=== PATIENT | female | born 1940 | race Caucasian/White ===

== ENCOUNTER 2018-07-19 12:23 | Observation (INO) | payer OTHER ==
[2018-07-19] MEDS ORDERED: IPRATROPIUM/ALBUTEROL 3 ML DEYVIAL IH ONE (13:12)
[2018-07-19] MEDS ORDERED: NS 1,000 ML IV ONE (13:12)
--- NOTE | 2018-07-19 13:32 | EDPHY ---
H & P Stated Complaint: fatigue Time Seen by Provider: 07/19/18 13:01 HPI/ROS: CHIEF COMPLAINT: General fatigue, shortness of breath, recent bronchitis HISTORY OF PRESENT ILLNESS: 80-year-old female who lives in [place] presents the emergency department reporting that she arrived to the [place] area on July 08. Several days later she went to see her brother in [place]. She developed what she thought was bronchitis with deep cough, shortness of breath, and wheezing. Low-grade fever. Those symptoms continued for about a week. Patient 's cough has improved however she continues to report significant dyspnea on exertion, and generalized fatigue. Vomiting occasionally after significant coughing, no diarrhea, no chest pain. Patient reports feeling very dehydrated with a dry mouth. No palpitations. No urinary complaints. No headache. She is lightheaded and dizzy. REVIEW OF SYSTEMS: A comprehensive 10 system review of systems was reviewed and is otherwise negative aside from elements mentioned in the history of present illness and medical decision making. PAST MEDICAL HISTORY: Atrial fibrillation, on Xarelto. Hypertension. SOCIAL HISTORY: Lives in [place]. 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 Nonsmoker. VITAL SIGNS Reviewed by me. GENERAL: Well-developed, well-nourished, resting comfortably in no respiratory distress. HEENT: Atraumatic. Eyes: No icterus, no injection. Mouth: moist mucous membranes. No erythema or lesions. Neck: supple with no adenopathy. LUNGS: Diminished breath sounds throughout, no wheezes rhonchi or rales auscultated. CARDIAC: Regular rate and rhythm, no rubs, murmurs or gallops. ABDOMEN: Soft, nontender, nondistended, bowel sounds normal. BACK: No CVA tenderness. EXTREMITIES: No trauma. No edema. Range of motion is normal throughout. NEURO: Alert and oriented, grossly nonfocal. SKIN: Warm and dry, no rash. PSYCHIATRIC: Normal mentation, no agitation. Are of - Personal History Current Tetanus Diphtheria and Acellular Pertussis (TDAP): Unsure - Medical/Surgical History Hx Asthma: No Hx Chronic Respiratory Disease: No Hx Diabetes: No Hx Cardiac Disease: No Hx Renal Disease: No Hx Cirrhosis: No Hx Alcoholism: No Hx HIV/AIDS: No Hx Splenectomy or Spleen Trauma: No Other PMH: afib, - Social History Smoking Status: Never smoked Constitutional: Initial Vital Signs Temperature (C) 36.6 C 07/19/18 12:26 Heart Rate 71 07/19/18 12:26 Respiratory Rate 16 07/19/18 12:26 Blood Pressure 132/75 H 07/19/18 12:26 O2 Sat (%) 94 07/19/18 12:26 O2 Delivery Mode Room Air Allergies/Adverse Reactions: Sulfa (Sulfonamide Antibiotics) Allergy (Verified 07/19/18 12:32) Home Medications: Medication Instructions Recorded Flecainide Acetate 50 mg PO BID 07/19/18 Metoprolol Tartrate [Lopressor 25 25 mg PO BID 07/19/18 mg (*)] Rivaroxaban [Xarelto] 20 mg PO DAILY 07/19/18 Medical Decision Making - Diagnostics EKG Interpretation: 12-LEAD EKG: Please see the full report in [facility]. My interpretation: Normal sinus rhythm, old inferior infarct. Imaging: I viewed and interpreted images myself ED Course/Re-evaluation: A 77-year-old female presenting with some shortness of breath which is been present for about 2 weeks. Patient thought she may have had bronchitis during the 1st week of her illness, her cough has improved and she continues to have significant shortness of breath with exertion. EKG demonstrates no acute ischemic changes. Bedside troponin is 0.04. Chest x-ray: No infiltrate, bibasilar atelectasis only. Consistent with airways disease. Patient received a albuterol neb treatment and Solu-Medrol 125 mg. Patient's lab troponin is indeterminate at 0.40. Course was discussed with the patient as well as with the hospitalist service. Patient states that she had a treadmill in April of this year which was unable to complete secondary inability to raise her heart rate to the level needed. A nuclear stress test was supposed to be ordered but she has not completed it. Patient understands that her shortness of breath may be cardiac in etiology. She will be admitted to the hospital to rule out acute coronary syndrome. Aspirin 324 mg was given. Differential Diagnosis: Differential diagnosis for the patient's shortness of breath was considered including but not limited to pulmonary infectious processes, Leavitt disease, asthma exacerbation, COPD exacerbation, pulmonary emboli, pulmonary edema, congestive heart failure, and cardiac causes. - Data Points Laboratory Results: Laboratory Results 07/19/18 13:30 07/19/18 13:30 Medications Given: Flecainide Acetate (Tambocor) 50 mg PO BID [facility] Stop: 01/15/19 16:59 Last Admin: 07/20/18 09:04 Dose: 50 mg Metoprolol Tartrate (Lopressor) 25 mg PO BID [facility] Stop: 01/15/19 20:59 Last Admin: 07/20/18 09:03 Dose: 25 mg Oseltamivir Phosphate (Tamiflu) 75 mg PO BIDMEAL [facility] Stop: 07/24/18 08:01 Last Admin: 07/20/18 09:04 Dose: Not Given Rivaroxaban (Xarelto) 20 mg PO DAILY [facility] Stop: 01/15/19 19:59 Last Admin: 07/19/18 20:36 Dose: 20 mg Discontinued Medications Albuterol/Ipratropium (Duoneb) 3 ml IH EDNOW ONE Stop: 07/19/18 13:13 Last Admin: 07/19/18 13:58 Dose: 3 ml Aspirin (Aspirin) 324 mg PO EDNOW ONE Stop: 07/19/18 15:10 Last Admin: 07/19/18 15:43 Dose: 324 mg Furosemide (Lasix Injection) 20 mg IVP ONCE ONE Stop: 07/19/18 17:02 Last Admin: 07/19/18 17:30 Dose: 20 mg Sodium Chloride (Ns) 1,000 mls @ 0 mls/hr IV ONCE ONE; Wide Open PRN Reason: Protocol Stop: 07/19/18 13:13 Last Admin: 07/19/18 13:40 Dose: 1,000 mls Methylprednisolone Sodium Succinate (Solu-Medrol) 125 mg IVP EDNOW ONE Stop: 07/19/18 14:09 Last Admin: 07/19/18 14:25 Dose: 125 mg Potassium Chloride (Klor-Con) 40 meq PO ONCE ONE Stop: 07/19/18 17:02 Last Admin: 07/19/18 17:30 Dose: 40 meq Potassium Chloride (Klor-Con) 10 meq PO ONCE ONE PRN Reason: Protocol Stop: 07/19/18 20:19 Last Admin: 07/19/18 20:36 Dose: 10 meq Point of Care Test Results: Chemistry 07/19/18 13:35 POC Troponin I 0.04 ng/mL ng/mL (0.00-0.08) Departure - Departure Disposition: [facility] Acute Clinical Impression: Indeterminate troponin, Rule out ACS Dyspnea Qualifiers: Dyspnea type: dyspnea on exertion Qualified Code(s): R06.09 - Other forms of dyspnea Condition: Fair
[2018-07-19 13:42] LABS: PLATELET COUNT 212 10^3/uL (150-400)
[2018-07-19] MEDS ORDERED: methylPREDNISolone SOD SUCC 125 MG/2 ML VIAL IVP ONE (14:08)
[2018-07-19] MEDS ORDERED: ASPIRIN 81 MG CHEWABLE TAB PO ONE (15:09)
[2018-07-19] MEDS ORDERED: ACETAMINOPHEN 325 MG TAB PO PRN (16:57)
[2018-07-19] MEDS ORDERED: ALBUTEROL 3 ML DEYVIAL IH PRN (16:57)
[2018-07-19] MEDS ORDERED: LABETALOL HCL 5 MG/ML 20 ML MDV IVP PRN (16:59)
[2018-07-19] MEDS ORDERED: POTASSIUM CL 20 MEQ TAB PO ONE (17:01)
[2018-07-19] MEDS ORDERED: FUROSEMIDE 20 MG/2 ML VIAL IVP ONE (17:01)
--- NOTE | 2018-07-19 17:03 | PDGENHP ---
History and Physical - Chief Complaint dyspnea - History of Present Illness 77 yo female with h/o a fib on chronic anticoagulation and hypertension presents to ED complaining of dyspnea with exertion. She is visiting from [place] since the first of July. About a week ago, she developed cough and viral URI symptoms. She states that since this bronchitis type illness, she has felt more short of breath. She denies peripheral edema. She denies orthopnea or PND. She denies chest pain or pressure. Her dyspnea only occurs with activity. She has no known h/o CAD. She is treated for A fib and hypertension. She is a non-smoker, non-diabetic. She has a family h/o CAD in her mother in her 80's. Lipid status is unknown. In the ED, her troponin is slightly elevated. She is admitted for further evaluation. History Information - Allergies/Home Medication List Allergies/Adverse Reactions: Sulfa (Sulfonamide Antibiotics) Allergy (Verified 07/19/18 12:32) Home Medications: Flecainide Acetate 50 mg PO BID 07/19/18 [Last Taken 07/19/18 am dose only] Metoprolol Tartrate [Lopressor 25 mg (*)] 25 mg PO BID 07/19/18 [Last Taken 03/27 am dose only] Rivaroxaban [Xarelto] 20 mg PO DAILY 07/19/18 [Last Taken 07/18/18] I have personally reviewed and updated: family history, medical history, social history, surgical history - Past Medical History atrial fibrillation, hypertension - Surgical History Reports: no pertinent surgical hx - Family History Positive for: CAD - Social History Smoking Status: Never smoked Alcohol Use: Rarely Drug Use: None Additional social history: Brother at bedside. Visiting from [place]. Review of Systems Review of Systems: ROS: 10pt was reviewed & negative except for what was stated in HPI & below Physical Exam Physical Exam: Temp Pulse Resp BP Pulse Ox 36.9 C 68 18 201/91 H 95 07/19/18 16:49 07/19/18 16:49 07/19/18 16:49 07/19/18 16:49 07/19/18 16:49 Constitutional: no apparent distress Eyes: PERRL Ears, Nose, Mouth, Throat: moist mucous membranes Cardiovascular: regular rate and rhythym, JVD Respiratory: no respiratory distress, inspiratory crackles Gastrointestinal: normoactive bowel sounds, soft, non-tender abdomen Skin: warm Musculoskeletal: full muscle strength Neurologic: AAOx3 Psychiatric: interacting appropriately Lab Data & Imaging Review 07/19/18 13:30 07/19/18 19:40 WBC 4.20 10^3/uL (3.80-9.50) 07/19/18 13:30 RBC 5.11 10^6/uL (4.18-5.33) 07/19/18 13:30 Hgb 14.4 g/dL (12.6-16.3) 07/19/18 13:30 Hct 44.7 % (38.0-47.0) 07/19/18 13:30 MCV 87.5 fL (81.5-99.8) 07/19/18 13:30 MCH 28.2 pg (27.9-34.1) 07/19/18 13:30 MCHC 32.2 g/dL (32.4-36.7) L 07/19/18 13:30 RDW 13.9 % (11.5-15.2) 07/19/18 13:30 Plt Count 212 10^3/uL (150-400) 07/19/18 13:30 MPV 10.7 fL (8.7-11.7) 07/19/18 13:30 Neut % (Auto) 58.9 % (39.3-74.2) 07/19/18 13:30 Lymph % (Auto) 31.9 % (15.0-45.0) 07/19/18 13:30 [place] % (Auto) 8.8 % (4.5-13.0) 07/19/18 13:30 Eos % (Auto) 0.0 % (0.6-7.6) L 07/19/18 13:30 Baso % (Auto) 0.2 % (0.3-1.7) L 07/19/18 13:30 Nucleat RBC Rel Count 0.0 % (0.0-0.2) 07/19/18 13:30 Absolute Neuts (auto) 2.47 10^3/uL (1.70-6.50) 07/19/18 13:30 Absolute Lymphs (auto) 1.34 10^3/uL (1.00-3.00) 07/19/18 13:30 Absolute Monos (auto) 0.37 10^3/uL (0.30-0.80) 07/19/18 13:30 Absolute Eos (auto) 0.00 10^3/uL (0.03-0.40) L 07/19/18 13:30 Absolute Basos (auto) 0.01 10^3/uL (0.02-0.10) L 07/19/18 13:30 Absolute Nucleated RBC 0.00 10^3/uL (0-0.01) 07/19/18 13:30 Immature Gran % 0.2 % (0.0-1.1) 07/19/18 13:30 Immature Gran # 0.01 10^3/uL (0.00-0.10) 07/19/18 13:30 RBC/WBC/PLT Morphology TNP 07/19/18 13:30 Platelet Estimate ADEQUATE (ADEQ) 07/19/18 13:30 Polychromasia 1+ H 07/19/18 13:30 D-Dimer 0.47 ug/mLFEU (0.00-0.50) 07/19/18 13:30 Sodium 139 mEq/L (135-145) 07/19/18 13:30 Potassium 3.4 mEq/L (3.5-5.2) L 07/19/18 13:30 Chloride 101 mEq/L (97-110) 07/19/18 13:30 Carbon Dioxide 30 mEq/l (22-31) 07/19/18 13:30 Anion Gap 8 mEq/L (6-14) 07/19/18 13:30 BUN 14 mg/dL (7-23) 07/19/18 13:30 Creatinine 0.6 mg/dL (0.6-1.0) 07/19/18 13:30 Estimated GFR > 60 07/19/18 13:30 Glucose 131 mg/dL (70-100) H 07/19/18 13:30 Calcium 8.9 mg/dL (8.5-10.4) 07/19/18 13:30 Total Bilirubin 0.4 mg/dL (0.1-1.4) 07/19/18 13:30 Conjugated Bilirubin 0.2 mg/dL (0.0-0.5) 07/19/18 13:30 Unconjugated Bilirubin 0.2 mg/dL (0.0-1.1) 07/19/18 13:30 AST 61 IU/L (14-46) H 07/19/18 13:30 ALT 57 IU/L (9-52) H 07/19/18 13:30 Alkaline Phosphatase 61 IU/L (38-126) 07/19/18 13:30 POC Troponin I 0.04 ng/mL (0.00-0.08) 07/19/18 13:35 Troponin I 0.040 ng/mL (0.000-0.034) H 07/19/18 13:30 NT-Pro-B Natriuret Pep 1340 pg/mL (0-450) H 07/19/18 13:30 Total Protein 7.8 g/dL (6.3-8.2) 07/19/18 13:30 Albumin 4.2 g/dL (3.5-5.0) 07/19/18 13:30 Urine Color YELLOW 07/19/18 13:37 Urine Appearance CLEAR 07/19/18 13:37 Urine pH 7.0 (5.0-7.5) 07/19/18 13:37 Ur Specific [place] 1.014 (1.002-1.030) 07/19/18 13:37 Urine Protein 1+ (NEGATIVE) H 07/19/18 13:37 Urine Ketones TRACE (NEGATIVE) H 07/19/18 13:37 Urine Blood NEGATIVE (NEGATIVE) 07/19/18 13:37 Urine Nitrate NEGATIVE (NEGATIVE) 07/19/18 13:37 Urine Bilirubin NEGATIVE (NEGATIVE) 07/19/18 13:37 Urine Urobilinogen 2.0 EU (0.2-1.0) H 07/19/18 13:37 Ur Leukocyte Esterase NEGATIVE (NEGATIVE) 07/19/18 13:37 Urine RBC 1-3 /hpf (0-3) 07/19/18 13:37 Urine WBC 1-3 /hpf (0-3) 07/19/18 13:37 Ur Epithelial Cells NONE SEEN /lpf (NONE-1+) 07/19/18 13:37 Urine Mucus TRACE /lpf (NONE-1+) 07/19/18 13:37 Urine Glucose NEGATIVE (NEGATIVE) 07/19/18 13:37 Visualized and Interpreted Chest x-ray results: Yes Chest X-Ray results: no infiltrate Visualized and Interpreted EKG results: Yes EKG Interpretation: Positive for: normal sinsus rhythm, Q waves, T waves inversion Assessment & Plan Assessment: Dyspnea (Acute) - worse with exertion, no hypoxemia. DDx includes ACS, acute HF , bronchitis symptom. Trop mildly elevated, BNP elevated, mild JVD, but CXR without jona edema, airway dz noted. EKG with inferior Q waves, poor R wave progression, anterolateral T wave changes, no prior for comparison. D dimer neg. -trend troponin, likely warrants inpt risk stratification pending echo results -check echo in am -rpt ekg in am -will give small dose Lasix and gauge response given elevated BNP and JVD on exam, monitor I&O's -check viral PCR -prn nebs, supportive care Mild troponin elevated - pt is chest pain free, may represent strain -trend trop, echo as above -likely needs inpt stress test pending echo results Hypertension - cont home metoprolol, prn IV labetalol A fib - in NSR on arrival -cont home metoprolol, flecainide -cont home xarelto for cva prevention Full code DVT PPLX - Xarelto Dispo - obs
[2018-07-19] MEDS ORDERED: PROTOCOL POTASSIUM 1 DOSE MISC PRN (17:13)
[2018-07-19] MEDS: FLECAINIDE ACETATE 100 MG TAB PO SCH ×2 (17:28→20:37)
[2018-07-19] MEDS ORDERED: POTASSIUM CL 10 MEQ TAB PO ONE (20:18)
[2018-07-19] MEDS: RIVAROXABAN 20 MG TAB PO SCH (20:36)
[2018-07-19] MEDS: METOPROLOL TARTRATE 25 MG TAB PO SCH (20:36)
--- NOTE | 2018-07-19 22:33 | CPEKG ---
Test Reason : OPEN Blood Pressure : / mmHG Vent. Rate : 061 BPM Atrial Rate : 061 BPM P-R Int : 150 ms QRS Dur : 094 ms QT Int : 469 ms P-R-T Axes : 056 -10 091 degrees QTc Int : 473 ms Sinus rhythm Inferior infarct, old diffuse T wave abnormalities Confirmed by Roxie Desai ([id number]) on 07/19/2018 10:32:57 PM Referred By: PHYSICIAN ED Confirmed By:Roxie Desai
[2018-07-19] MEDS: OSELTAMIVIR PHOSPHATE 75 MG CAP PO SCH (22:35)
--- NOTE | 2018-07-20 08:12 | HOSPPROG ---
Hospitalist Progress Note Assessment/Plan: DIAGNOSES: * Exertional dyspnea * Influenza A acute infection * Indeterminate troponin elevation * Elevated hepatic transaminases possibly due to influenza versus other causes * Suspected airways disease PLANS: SUBJECTIVE: OBJECTIVE Vitals reviewed: Hypertension otherwise stable vital signs Oxygen: 84% room air oxygen saturation Signal Operator Technical, my review: I&O: 1240 net out overnight Exam: alert oriented skin warm dry color ok resps not labored lungs clear BSs heart regular abd soft nondistended nontender, bowel sounds present limbs warm, no edema iv site ok Echocardiogram: Lab data: Troponins all normal Electrolytes stable Objective: Vital Signs Temp Pulse Resp BP Pulse Ox 36.8 C 59 L 16 165/79 H 99 07/20/18 03:06 07/20/18 03:06 07/20/18 03:06 07/20/18 03:06 07/20/18 03:06 Microbiology 07/19/18 18:30 Respiratory Panel (PCR) - Final Nasal, Sinus - Swab Influenza Virus Type A H3 Laboratory Results 07/20/18 03:05 07/19/18 07/20/18 07/21/18 06:59 06:59 06:59 Intake Total 570 Output Total 1800 Balance -1230 ICD10 Worksheet Patient Problems: Problems Problem Status Onset Dyspnea Acute
[2018-07-20] MEDS: METOPROLOL TARTRATE 25 MG TAB PO SCH (09:03)
[2018-07-20] MEDS: FLECAINIDE ACETATE 100 MG TAB PO SCH (09:04)
[2018-07-20] MEDS: OSELTAMIVIR PHOSPHATE 75 MG CAP PO SCH (09:04)
[2018-07-20 11:14] VITALS: BP 162/80
--- NOTE | 2018-07-20 13:55 | ASMTLACE ---
SHERMAN Acuity / Level of Answers: Yes Care: Did the patient have an inpatient admission? Comorbidities - select Answers: Other Notes: atrial fibrillation all that apply # of Emergency department Answers: 1-2 visits in the last 6 months Score: 5 Date Signed: 07/20/2018 01:54 PM Electronically Signed By:Leonie Mera
--- NOTE | 2018-07-20 13:57 | ECHO ---
[email or web address] [address] [address] Main: [phone] Echocardiography Examination Transthoracic Name: DAMIAN TREVINO MR#: [id number] Study Date: 07/20/2018 Study Time: 07:56 AM Date of : 1940 Age: 77 year(s) Height: 165.1 cm (65 in.) Weight: 74.84 kg (165 lb.) BSA: 1.82 m2 Gender: Female Examination: Echo Contrast: Image Quality: Fair Rhythm: Heart Rate: BP: 165 mmHg/79 mmHg Indication: Dyspnea on exertion/elevated BNP Procedure Staff Referring Physician: Lift Truck Operator: January Lowe RDCS Reading Physician: Sami Banda MD Requesting Provider: Indication: Dyspnea on exertion/elevated BNP Measurements Chambers AV/MV Label Value Normal Value Label Value Normal Value LVOTd 1.9 cm (1.8cm - 2cm) AV PGmean 4 mmHg LVDd, 2D 4.7 cm (3.9cm - 5.3cm) AV Vmax 1.43 m/s LVDs, 2D 2.7 cm (2.1cm - 4cm) MV E Vmax 0.78 m/s IVSd, 2D 0.9 cm (0.6cm - 1.1cm) MV A Vmax 0.56 m/s LVPWd, 2D 1.1 cm MV E/A 1.39 LVEF, 2D 74 % (54% - 74%) MV E/E' lateral 20.9 LA Volume, BP 73 ml (22ml - 52ml) MV E/E' septal 15 (0.45 - 1.25) LADs, 2D 4 cm (2.7cm - 3.8cm) MV E' septal 0.05 m/s LAESV index, BP 40.1 ml/m2 MR Vena Contracta 0.4 cm Additional Vessels MV E' lateral 0.04 m/s Label Value Normal Value MV E/E' mean 17.33 AoAsc 3.2 cm MV E' mean 0.04 m/s AoRoot, MM 3.1 cm (2.2cm - 3.7cm) TV/PV Label Value Normal Value RA Pressure 5 mmHg RVSP 31 mmHg TR Pmax 26 mmHg TR Vmax 2.53 m/s Patient: DAMIAN TREVINO Study Date: 07/20/2018 Page 1 of 2 07:56 AM Conclusions Normal left ventricular size and systolic function. LVEF estimated at 70-75%. Borderline left ventricular hypertrophy. No regional wall motion abnormalities. Grade 2 diastolic dysfunction suggesting elevated left atrial pressures. Moderate left atrial enlargement. Normal RV and RA dimensions. Trileaflet aortic valve without stenosis. Trivial aortic regurgitation. Normal appearing mitral valve with mild mitral regurgitation. Normal-appearing tricuspid valve. Trivial tricuspid regurgitation. Normal estimated RVSP at 31 mmHg. Findings Left Ventricle: Diastolic dysfunction is present.. Left ventricle is normal in size. Normal global systolic left ventricular function. EF range is estimated at 70 % - 75 %. Left ventricle wall thickness is normal. There are no regional wall motion abnormalities. Grade II Diastolic Dysfunction. IVS: The septum is intact. Right Ventricle: Normal size right ventricle. Right ventricular wall thickness is normal. Right ventricular systolic function is normal. Left Atrium: The left atrium is mildly to moderately dilated. IAS: Atrial septal bowing from left to right. Right Atrium: The right atrium is normal in size. Mitral Valve: Mitral valve appears structurally normal. Mild mitral regurgitation. No mitral valve stenosis. Aortic Valve: Aortic leaflets exhibit normal cuspal separation. Trivial aortic regurgitation is present. There is no aortic stenosis. The aortic valve is trileaflet. Tricuspid Valve: Tricuspid valve leaflets are normal in appearance and function. Trivial tricuspid regurgitation. No tricuspid valve stenosis. Right Ventricular systolic pressure is measured at 31 mmHg. Pulmonary artery pressure normal. Pulmonic Valve: Pulmonic valve is poorly visualized. Pulmonic leaflets exhibit normal cuspal separation. No pulmonic valve regurgitation is evident. There is no pulmonic valve stenosis. Aorta: The aorta is normal. The aortic root size in M-mode measures 3.1 cm. The ascending aorta measures 3.2 cm. Aorta Measurements AoRoot, MM is 3.1 cm. Pericardium: A pericardial fat pad is present. No pericardial effusion. No pleural effusion present. Exam Details Procedure Ordered: Echo Procedure Status: Routine study Image Quality: Fair Facility Location: Cardiac Echo 1 (No Signature Object) Patient: DAMIAN TREVINO Study Date: 07/20/2018 Page 2 of 2 07:56 AM [id number]
[2018-07-20] MEDS: RIVAROXABAN 20 MG TAB PO SCH (14:00)
--- NOTE | 2018-07-20 15:06 | ASMTCMCOM ---
CM Note CM Note Notes: Patient admitted with SOB, fatigue, and elevated trops. Influenza A positive. She is here from [place] visiting her brother. She is normally independent and lives w her . I anticipate she will d/c home independently. No CM needs. Date Signed: 07/20/2018 03:05 PM Electronically Signed By:Marisol York RN
--- NOTE | 2018-07-20 15:38 | PDDCSUM ---
Discharge Summary Discharge Summary: DISCHARGE DIAGNOSES: * Diastolic congestive heart failure, acute (preserved systolic function, no concerning valve abnormalities) * Acute influenza a * Elevated blood pressures, without history of hypertension * Left ventricular diastolic dysfunction and left atrial enlargement by echocardiogram * Chronic paroxysmal atrial fibrillation currently in sinus rhythm on flecainide and on chronic anticoagulant PROCEDURES: Echocardiogram: Normal LV EF and wall motion, diastolic dysfunction and left atrial enlargement are present, mild mitral regurgitation, normal pulmonary pressures HOSPITAL COURSE SUMMARY: This patient who lives in [place] and is here for business trip came into the hospital with exertional dyspnea. She did have some mild cough. There is a history of atrial fibrillation but she has been in sinus rhythm throughout her stay here. She has no history of smoking or lung disease. There were no chest pains or other anginal-type symptoms and no symptoms that were specific for pulmonary embolism. There has been no fever, and Heart and Lung examination have been normal. There is no evidence of cardiac ischemia on EKG. Her 1st troponin was indeterminate at 0.04 but subsequent troponins have all been normal. Acute coronary syndrome is not suspected. There has been no hypoxemia noted during her stay at rest or with exertion. Significant findings include acute influenza a, as well as evidence of mild congestive heart failure. She has had some hypertension here. She had mild jugular venous distension and mild ankle edema. On chest x-ray there is a minimal amount of interstitial edema but no other abnormalities. Pro-N terminal BNP is elevated at 1340 upon admission. A D-dimer is 0.047 in normal range on our lab. An echocardiogram shows diastolic dysfunction of the left ventricle and left atrial enlargement as the only abnormalities of concern. We did bedside spirometry testing and this is normal with no signs of obstruction or restriction. Here in the hospital she was treated with a single dose of Lasix to which she responded with very good diuresis. This has led to marked improvement in her symptoms of dyspnea. She still has trace edema at the ankles but otherwise unremarkable examination. She is now ambulating hallways without difficulty, eating well, and feeling overall less malaise. At this point she feels comfortable with discharging from the hospital. It is felt that her symptoms are due to combination of acute influenza a and mild diastolic congestive heart failure. The heart failure may have been caused by coming to higher altitude, increase salt intake during travel, and the physiologic stress of the influenza a infection. Additionally she has had some high blood pressures here. She tells me that her but blood pressures are checked with some regularity at home and are typically in normal range, so it is unclear whether the higher blood pressures here represent a true increase in her blood pressure or a white coat type syndrome blood pressure elevation. This will clearly need to be monitored going forward At this point she is stable for discharge to home. Is strongly recommended that she keep on a low-sodium diet. She may travel back to [place] when she feels well enough but is stable for doing so at this time. PENDING TEST RESULTS: None MEDICATION CHANGES: Lasix will be prescribed for p.r.n. use in case of any worsening dyspnea or ankle swelling until she has follow-up. FOLLOW-UP PLAN: She will follow up with primary care physician upon return home for assessment of her heart and respiratory function and her blood pressures She will stick to a low-sodium diet She may travel safely back to [place] when she feels ready regarding her flu symptoms Greater than 35 minutes bedside and care coordination time today
[2018-07-20] MEDS ORDERED: RIVAROXABAN 20 MG TAB PO SCH (18:00)
== END 2018-07-20 16:13 | disposition home or self-care (01) ==
LOC: F2W 16:40
PROVIDERS: ADMIT Hospitalist; ATTEND Internal Medicine
DX: I50.31 Acute diastolic (congestive) heart failure (principal); J11.1 Influenza due to unidentified influenza virus with other respiratory manifestations; I48.0 Paroxysmal atrial fibrillation; Z79.01 Long term (current) use of anticoagulants; I10 Essential (primary) hypertension
CPT/HCPCS: 71046; 93005; 93306; 96374; 96375; 99285; G0378; J1940; J2930; 84484-ER